=== PATIENT | male | born 1965 | race Two or more races ===

== ENCOUNTER → 2020-04-15 | Outpatient (CLI) | payer BC ==
[~2020-04-15] MED LIST: IBUP-1223 PO; INSU100V35 SC; META800T PO; METF1000 PO; SITA100T PO; TAMS-11 PO
[2020-04-15 14:44] LABS: BASOPHILS % (AUTO) 1 % (0-1); EOSINOPHILS % (AUTO) 2 % (1-7); LYMPHOCYTES % (AUTO) 29 % (22-44); MEAN CORPUSCULAR HGB CONC 34.4 g/dL (33.2-36.2); MEAN PLATELET VOLUME 7.7 fL (7.4-10.4); MONOCYTES % (AUTO) 7 % (2-9); NEUTROPHILS % (AUTO) 61 % (42-75); PLATELET COUNT 253 x10^3/uL (130-400); RED BLOOD COUNT 5.06 x10^6/uL (4.38-5.82); RED CELL DISTRIBUTION WIDTH 13.8 % (9.4-14.8)
[2020-04-15 14:48] LABS: MD NO
[2020-04-15 14:51] LABS: ALBUMIN 4.3 g/dL (3.4-5.0); ANION GAP 6 mmol/L (5-15); CALCIUM 9.6 mg/dL (8.5-10.1); CHLORIDE 110 mmol/L (98-107); INTERNATIONAL NORMALIZED RATIO 1.01 (0.93-1.1); PROTHROMBIN TIME 10.8 Seconds (9.6-11.5)
[2020-04-15 14:55] LABS: ALANINE AMINOTRANSFERASE 28 U/L (12-78); ALKALINE PHOSPHATASE 52 U/L (45-117); BILIRUBIN,TOTAL 0.4 mg/dL (0.2-1.0); CREATININE 1.12 mg/dL (0.7-1.3); TOTAL PROTEIN 7.5 g/dL (6.4-8.2)
[2020-04-15 15:55] LABS: MICROSCOPIC AUTO
== END | disposition home or self-care (01) ==
LOC: STAR 13:37
PROVIDERS: ATTEND Neurological Surgery
DX: Z01.810 Encounter for preprocedural cardiovascular examination (principal); Z01.811 Encounter for preprocedural respiratory examination; Z01.812 Encounter for preprocedural laboratory examination; M51.26 Other intervertebral disc displacement, lumbar region; R79.1 Abnormal coagulation profile; R94.31 Abnormal electrocardiogram [ECG] [EKG]; R82.90 Unspecified abnormal findings in urine; M47.26 Other spondylosis with radiculopathy, lumbar region; I25.89 Other forms of chronic ischemic heart disease; Z20.822 Contact with and (suspected) exposure to COVID-19
CPT/HCPCS: 71046; 80053; 81001; 85025; 85610; 85730; 87086; 87635; 93005

== ENCOUNTER 2020-04-19 05:31 | Day surgery (SDC) | payer BC ==
[~2020-04-19] VITALS: Ht 182.9 cm; Wt 95.0 kg
[2020-04-19 06:04] VITALS: BP 125/79
[2020-04-19] MEDS ORDERED: MIDAZOLAM 1 MG/ML, 2ML ONE (06:15)
[2020-04-19] MEDS ORDERED: FENTANYL PF 250 MCG/5ML ONE ×2 (06:15→07:08)
[2020-04-19] MEDS ORDERED: EPINEPHRINE 1 MG/ML, 1ML ONE (06:22)
[2020-04-19] MEDS ORDERED: BACITRACIN 50,000 UNIT ONE (06:22)
[2020-04-19] MEDS ORDERED: VANCOMYCIN 1,000 MG ONE (06:22)
[2020-04-19] MEDS ORDERED: BUPIVACAINE/PF 0.5% ONE (06:22)
[2020-04-19] MEDS ORDERED: ONDANSETRON 2MG/ML, 2ML IVPush PRN ×2 (06:30→09:00)
[2020-04-19] MEDS ORDERED: ACETAMINOPHEN 325 MG TABLET PO PRN (06:30)
[2020-04-19] MEDS ORDERED: HYDROmorphone 1 MG/ML, 1ML INJ IVPush PRN (06:30)
[2020-04-19] MEDS ORDERED: OXYcodone 5 MG/5 ML ORAL.SOL UDC PO PRN (06:30)
[2020-04-19] MEDS ORDERED: morphine SULFATE 10 MG/ML, 1ML IVPush PRN ×2 (06:30→09:00)
[2020-04-19] MEDS ORDERED: CHLORHEXIDINE 15 ML UDC MM ONE (06:30)
[2020-04-19] MEDS ORDERED: LACTATED RINGERS 1,000 ML IV SCH (06:30)
[2020-04-19] MEDS ORDERED: MEPERIDINE/PF 25MG/0.5ML IVPush PRN (06:30)
[2020-04-19] MEDS ORDERED: hydrALAzine 20 MG/ML, 1ML IV PRN (06:30)
[2020-04-19] MEDS ORDERED: LABETALOL 5MG/ML, 20ML IV PRN (06:30)
[2020-04-19] MEDS ORDERED: ROCURONIUM 10MG/ML,5ML ONE (06:45)
[2020-04-19] MEDS ORDERED: NEOSTIGMINE 1 MG/ML, 10ML ONE (06:45)
[2020-04-19] MEDS ORDERED: GLYCOPYRROLATE 0.2MG/1ML, 5ML ONE (06:45)
[2020-04-19] MEDS ORDERED: PROPOFOL 10 MG/ML, 20ML ONE (06:45)
[2020-04-19] MEDS ORDERED: PROPOFOL 100 ML ONE (06:45)
[2020-04-19] MEDS ORDERED: CEFAZOLIN 1,000 MG ONE (06:45)
[2020-04-19] MEDS ORDERED: CYCL10TA2 PO (08:52)
[2020-04-19] MEDS ORDERED: HYDR-1067 PO (08:52)
[2020-04-19] MEDS ORDERED: FENTANYL PF 100 MCG/2ML ONE ×2 (08:58→09:39)
[2020-04-19] MEDS ORDERED: PHARMACY MAY ADJ FOR RENAL FX MC PRN (09:00)
[2020-04-19] MEDS ORDERED: SENNA/DOCUSATE TABLET PO PRN (09:00)
[2020-04-19] MEDS ORDERED: HYDROcodone/APAP 10/325 MG TABLET PO PRN (09:00)
[2020-04-19] MEDS ORDERED: DIPHENHYDRAMINE 50 MG/ML, 1ML IVPush PRN (09:00)
[2020-04-19] MEDS ORDERED: SODIUM CHLORIDE FLUSH 10ML SYR IVF SCH (09:00)
[2020-04-19] MEDS ORDERED: HYDROcodone/APAP 5/325 TABLET PO PRN (09:00)
[2020-04-19] MEDS: FENTANYL PF 100 MCG/2ML IV PRN ×3 (09:00→09:40)
[2020-04-19] MEDS ORDERED: INSULIN REGULAR 100 UNITS/ML, 3ML VIAL SQ-INSULIN PRN (09:00)
[2020-04-19] MEDS ORDERED: LABETALOL 5MG/ML 40ML VIAL IVPush SCH (09:00)
[2020-04-19] MEDS ORDERED: DIPHENHYDRAMINE 50 MG/ML, 1ML IM PRN (09:00)
[2020-04-19] MEDS ORDERED: METHOCARBAMOL 1,000 MG in DEXTROSE 5% 100 ML IV ONE (09:00)
[2020-04-19] MEDS ORDERED: PROMETHAZINE 25 MG/ML, 1ML IM PRN (09:00)
[2020-04-19] MEDS ORDERED: NS + 20MEQ KCL 1,000 ML IV SCH (09:00)
[2020-04-19] MEDS ORDERED: ACETAMINOPHEN 650 MG/20.3 ML UDC ONE (09:39)
[2020-04-19] MEDS ORDERED: OXYcodone 5 MG/5 ML ORAL.SOL UDC ONE (09:39)
[2020-04-19] MEDS ORDERED: CEFAZOLIN PMX 1GM/50ML 50 ML IVPB SCH (15:00)
[2020-04-21] MEDS ORDERED: METHOCARBAMOL 750 MG TABLET PO SCH (17:00)
== END 2020-04-19 12:25 | disposition home or self-care (01) ==
LOC: OUT 05:31 → ORIP 08:42 → UNDOADMOB 08:42 → ORIP 12:25
PROVIDERS: ATTEND Neurological Surgery
DX: M51.16 Intervertebral disc disorders with radiculopathy, lumbar region (principal); M51.17 Intervertebral disc disorders with radiculopathy, lumbosacral region; M51.06 Intervertebral disc disorders with myelopathy, lumbar region; M48.061 Spinal stenosis, lumbar region without neurogenic claudication; M48.062 Spinal stenosis, lumbar region with neurogenic claudication; E11.9 Type 2 diabetes mellitus without complications; N40.0 Benign prostatic hyperplasia without lower urinary tract symptoms; Z79.1 Long term (current) use of non-steroidal anti-inflammatories (NSAID); Z79.84 Long term (current) use of oral hypoglycemic drugs; Z79.899 Other long term (current) drug therapy; Z98.890 Other specified postprocedural states; Z83.3 Family history of diabetes mellitus; Z83.6 Family history of other diseases of the respiratory system
CPT/HCPCS: 63042; 63044; 72100; 82962; 95938; 95941; C1729; J0171; J0690; J2250; J2704; J2710; J2800; J3010; J3370; J7120